=== PATIENT | female | born 1995 | race Caucasian/White ===

== ENCOUNTER 2017-10-11 10:44 | Inpatient (IN) | payer BC ==
[2017-10-11] MEDS ORDERED: Methylergonovine 0.2 MG/1 ML Amp IM PRN (11:09)
[2017-10-11] MEDS ORDERED: Sodium Chloride 0.9% 2.5 ML Syringe FLUSH PRN (11:09)
[2017-10-11] MEDS ORDERED: Lidocaine 1% 50 ML MDV INJECT PRN (11:09)
[2017-10-11] MEDS ORDERED: Butorphanol 1 MG/ML SDV IVPUSH PRN (11:09)
[2017-10-11] MEDS ORDERED: Water For Irrigation,Sterile 1,000 ML Container IRR PRN (11:09)
[2017-10-11] MEDS ORDERED: Terbutaline 1 MG/ML SDV SUBCUT PRN (11:09)
[2017-10-11] MEDS ORDERED: Misoprostol 200 MCG Tab PO PRN (11:09)
[2017-10-11] MEDS ORDERED: Carboprost Tromethamine 250 MCG/1 ML Amp IM PRN (11:09)
[2017-10-11] MEDS ORDERED: Sodium Chloride 0.9% 10 ML Syringe FLUSH PRN (11:09)
[2017-10-11] MEDS ORDERED: Tranexamic Acid 1,000 MG in Sodium Chloride 0.9% 100 ML IV PRN (11:09)
[2017-10-11] MEDS ORDERED: Oxytocin/0.9 % Sodium Chloride 30 UNIT/500 ML BAG IV SCH ×2 (11:15)
[2017-10-11] MEDS: Lactated Ringers 1,000 ML IV SCH ×2 (11:26→14:01)
[2017-10-11] MEDS ORDERED: Ampicillin 2 GM in Sodium Chloride 0.9% 100 ML IV ONE (11:30)
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
[2017-10-11] MEDS ORDERED: Ampicillin 1 GM in Sodium Chloride 0.9% 50 ML IV SCH (15:30)
[2017-10-11] MEDS ORDERED: oxyCODONE 5 MG Tab PO PRN (15:36)
[2017-10-11] MEDS ORDERED: Aluminum Hydroxide/Magnesium Hydroxide/Simethicone Susp 30 ML Cup PO PRN (15:36)
[2017-10-11] MEDS ORDERED: Bisacodyl 10 MG Supp RECTAL PRN (15:36)
[2017-10-11] MEDS ORDERED: Ibuprofen 400 MG Tab PO PRN (15:36)
[2017-10-11] MEDS ORDERED: Lanolin 100% Cream 7 GM Tube TOP PRN (15:36)
[2017-10-11] MEDS ORDERED: Docusate Sodium 100 MG Cap PO PRN (15:36)
[2017-10-11] MEDS ORDERED: Witch Hazel Medicated Pads 40/Jar TOP PRN (15:36)
[2017-10-11] MEDS ORDERED: Acetaminophen 500 MG Tab PO PRN (15:36)
--- NOTE | 2017-10-11 15:43 | PCM.DEL ---
L & D Note - General Info Date of Service: 10/11/17 - Delivery Note Labor: Induced by Oxytocin Delivery Outcome: Livebirth Infant Delivery Method: Spontaneous Vaginal Delivery-Single Anesthesia Type: Epidural Amniotic Fluid Description: Clear Episiotomy Type: None Laceration: 2nd Degree Suture type: Vicryl Suture size: 3-0 Placenta: Intact, Spontaneous Cord: 3 Vessels Provider: Maddy Burris Score 1 min: 8 Score 5 min: 9 Delivery Comments (Free Text/Narrative):: Dictation [id number] - General Info Date of Service: 10/11/17 - Patient Data Weight - Most Recent: 78.925 kg Lab Results Last 24 Hours: Laboratory Results - last 24 hr 10/11/17 10/11/17 Range/Units 11:25 11:25 WBC 8.74 (4.0-11.0) K/uL RBC 4.34 (4.30-5.90) M/uL Hgb 14.3 (12.0-16.0) g/dL Hct 40.9 (36.0-46.0) % MCV 94.2 (80.0-98.0) fL MCH 32.9 H (27.0-32.0) pg MCHC 35.0 (31.0-37.0) g/dL RDW Std Deviation 46.5 (28.0-62.0) fl RDW Coeff of [place] 13 (11.0-15.0) % Plt Count 160 (150-400) K/uL MPV 10.40 (7.40-12.00) fL Nucleated RBC % 0.0 /100WBC Nucleated RBCs # 0 K/uL Blood Type O POSITIVE Antibody Screen NEGATIVE Med Orders - Current: Current Medications Acetaminophen (Tylenol Extra Strength) 500 mg PO Q4H PRN PRN Reason: Pain Acetaminophen (Tylenol Extra Strength) 1,000 mg PO Q4H PRN PRN Reason: Pain Al Hydroxide/Mg Hydroxide (Mag-Al Plus) 30 ml PO Q8H PRN PRN Reason: Heartburn Benzocaine/Menthol (Dermoplast Pain Relief 20%-0.5% [place]) 78 gm TOP ASDIRECTED PRN PRN Reason: Perineal Comfort Measure Bisacodyl (Dulcolax) 10 mg RECTAL .ONCE PRN PRN Reason: Constipation Carboprost Tromethamine (Hemabate Ds) 250 mcg IM ASDIRECTED PRN PRN Reason: Post Hemorrhage Docusate Sodium (Colace) 100 mg PO BID PRN PRN Reason: Constipation Emollient Ointment (Lansinoh Hpa) 0 gm TOP ASDIRECTED PRN PRN Reason: Sore Nipples Lactated Ringer's (Ringers, Lactated) 1,000 mls @ 150 mls/hr IV ASDIRECTED JOSE L Last Admin: 10/11/17 14:01 Dose: 150 mls/hr Oxytocin/Sodium Chloride (Oxytocin 30 Unit/500 Ml-Ns) 30 unit in 500 mls @ 999 mls/hr IV TITRATE JOSE L Oxytocin/Sodium Chloride (Oxytocin 30 Unit/500 Ml-Ns) 30 unit in 500 mls @ 2 mls/hr IV TITRATE JOSE L; Protocol Last Titration: 10/11/17 15:14 Dose: 999 mls/hr Tranexamic Acid 1,000 mg/ (Sodium Chloride) 110 mls @ 660 mls/hr IV ONETIME PRN PRN Reason: Bleeding Ibuprofen (Motrin) 400 mg PO Q4H PRN PRN Reason: Pain Ibuprofen (Motrin) 800 mg PO Q6H PRN PRN Reason: Pain Lidocaine HCl (Xylocaine 1%) 50 ml INJECT .ONCE PRN PRN Reason: Laceration repair Methylergonovine Maleate (Methergine) 0.2 mg IM ASDIRECTED PRN PRN Reason: Post Hemorrhage Misoprostol (Cytotec) 200 mcg PO .ONCE PRN PRN Reason: Post Hemorrhage Oxycodone HCl (Oxycodone) 5 mg PO Q2H PRN PRN Reason: Pain Sodium Chloride (Saline Flush) 10 ml FLUSH ASDIRECTED PRN PRN Reason: Keep Vein Open Sodium Chloride (Saline Flush) 2.5 ml FLUSH ASDIRECTED PRN PRN Reason: Keep Vein Open Witch Funmi (Tucks) 1 pad TOP ASDIRECTED PRN PRN Reason: comfort care Discontinued Medications Butorphanol Tartrate (Stadol) 1 mg IVPUSH Q1H PRN PRN Reason: Pain Ampicillin Sodium 2 gm/ Sodium (Chloride) 100 mls @ 200 mls/hr IV ONETIME ONE Stop: 10/11/17 11:59 Last Admin: 10/11/17 11:44 Dose: 200 mls/hr Ampicillin Sodium 1 gm/ Sodium (Chloride) 50 mls @ 100 mls/hr IV Q4H JOSE L Fentanyl/Bupivacaine HCl (Iqbcddto-Udfbp-Sl 2 Mcg/Ml-0.125%) Confirm Administered Dose 100 mls @ as directed EP .STK-MED ONE Stop: 10/11/17 14:03 Sterile Water (Sterile Water For Irrigation) 1,000 ml IRR ASDIRECTED PRN PRN Reason: delivery Last Admin: 10/11/17 15:22 Dose: 1,000 ml Terbutaline Sulfate (Brethine) 0.25 mg SUBCUT ASDIRECTED PRN PRN Reason: Tacysystole - Problem List Review Problem List Initiated/Reviewed/Updated: Yes - My Orders Last 24 Hours: My Active Orders 10/11/17 11:09 Patient Status [ADT] Routine Bedrest Bathroom Privileges [RC] ASDIRECTED Heart Tones [RC] CONTINUOUS Non Stress Test [RC] PER UNIT ROUTINE May Shower [RC] ASDIRECTED Oxygen Therapy [RC] ASDIRECTED Up ad Madelyn [RC] ASDIRECTED Vaginal Exam [RC] PRN Vaginal Exam [RC] PRN Vital Signs [RC] PER UNIT ROUTINE Vital Signs [RC] PER UNIT ROUTINE Carboprost Tromethamine [Hemabate DS] 250 mcg IM ASDIRECTED PRN Lidocaine 1% [Xylocaine 1%] 50 ml INJECT .ONCE PRN Methylergonovine [Methergine] 0.2 mg IM ASDIRECTED PRN Misoprostol [Cytotec] 200 mcg PO .ONCE PRN Sodium Chloride 0.9% [Saline Flush] 10 ml FLUSH ASDIRECTED PRN Sodium Chloride 0.9% [Saline Flush] 2.5 ml FLUSH ASDIRECTED PRN Tranexamic Acid [Cyklokapron] 1,000 mg Sodium Chloride 0.9% [Normal Saline] 100 ml IV ONETIME Peripheral IV Insertion Adult [OM.PC] Routine Resuscitation Status Routine 10/11/17 11:15 Lactated Ringers [Ringers, Lactated] 1,000 ml IV ASDIRECTED Oxytocin/0.9 % Sodium Chloride [Oxytocin 30 Unit/500 ML-NS] 30 unit in 500 ml IV TITRATE Oxytocin/0.9 % Sodium Chloride [Oxytocin 30 Unit/500 ML-NS] 30 unit in 500 ml IV TITRATE Medication Administration Instruction [OM.PC] Q3H 10/11/17 15:36 Patient Status [ADT] Routine May Shower [RC] ASDIRECTED Up ad Madelyn [RC] ASDIRECTED Vital Signs [RC] PER UNIT ROUTINE Acetaminophen [Tylenol Extra Strength] 1,000 mg PO Q4H PRN Acetaminophen [Tylenol Extra Strength] 500 mg PO Q4H PRN Alum Hydrox/Mag Hydrox/Simeth [Mag-Al Plus] 30 ml PO Q8H PRN Benzocaine/Menthol [Dermoplast Pain Relief 20%-0.5% [place]] 78 gm TOP ASDIRECTED PRN Bisacodyl [Dulcolax] 10 mg RECTAL .ONCE PRN Docusate Sodium [Colace] 100 mg PO BID PRN Ibuprofen [Motrin] 400 mg PO Q4H PRN Ibuprofen [Motrin] 800 mg PO Q6H PRN Lanolin [Lansinoh HPA] See Dose Instructions TOP ASDIRECTED PRN Witch Funmi [Tucks] 1 pad TOP ASDIRECTED PRN oxyCODONE 5 mg PO Q2H PRN Assess Lochia [WOMSER] Per Unit Routine Assess Uterine Involution [WOMSER] Per Unit Routine Breast Pump [WOMSER] Per Unit Routine Ice Therapy [OM.PC] Per Unit Routine Perineal Care [OM.PC] Per Unit Routine Peripheral IV Discontinue [OM.PC] Routine Sitz Bath [OM.PC] Per Unit Routine 10/11/17 Dinner Regular Diet [DIET] 10/12/17 05:11 HEMOGLOBIN/HEMATOCRIT,HH [HEME] Timed
[2017-10-11] MEDS: Benzocaine/Menthol 20%-0.5% Spray 78 GM Cannister TOP PRN (16:06)
[2017-10-11] MEDS: Ibuprofen 800 MG Tab PO PRN ×2 (16:07→22:04)
--- NOTE | 2017-10-11 16:23 | OR ---
SURGEON: Maddy Burris M.D. DATE OF PROCEDURE: 10/11/2017 PREOPERATIVE DIAGNOSES: 1. 39 and 5 week intrauterine . 2. Elective induction of labor. POSTOPERATIVE DIAGNOSES: 1. 39 and 5 week intrauterine . 2. Elective induction of labor. PROCEDURES: Spontaneous vaginal delivery, second-degree midline laceration repaired. ANESTHESIA: Epidural. ESTIMATED BLOOD LOSS: 350 mL. COMPLICATIONS: None. FINDINGS: Viable male, score 8 at 1 minute, 9 at 5 minutes. Weight of 3210 g. Spontaneous delivery, intact placenta, 3-vessel cord. Clear amniotic fluid. DISPOSITION: The patient to [facility] and infant to nursery. PROCEDURE IN DETAIL: Flores is a 22-year-old, G2, P1, at 39 and 5 weeks' gestational age who presents this morning for scheduled induction of labor. On initial admission and presentation, heart tones were found to be 130s with variability category 1. She was found to be 3 cm, 70%, -3 station. She was admitted and routine labs were drawn. She was group beta strep positive, so ampicillin prophylaxis was initiated. The patient responded nicely to Pitocin, became increasingly uncomfortable and underwent regional anesthesia at approximately 2:00 p.m. After undergoing the epidural satisfactorily, she was feeling quite a lot of pressure and shortly after 3:00 was found to be complete, 100% effaced, +2 station. I was called for delivery. Upon my arrival just before this, the patient had spontaneous rupture of membranes. Clear fluid was noted. The patient was placed in modified dorsal lithotomy position, prepped and draped in the usual aseptic manner. With the next 2 contractions, was able to push, deliver 's head atraumatically, spontaneously, followed by anterior shoulder, posterior shoulder, and remaining body without difficulty. The infant's oropharynx and nares bulb suctioned, cord clamped x2 and cut. was handed off to his mother, attending nursing staff at her side. Cord arterial, cord venous, cord blood sampling obtained. Light pressure was applied while the placenta was delivered spontaneously intact. Vigorous fundal uterine massage was then applied while 30 units Pitocin was delivered in 500 mL. IV fluid. Upon inspection of cervix, vaginal sidewalls, and perineum, there was found to be a second-degree midline laceration. This repaired using 3-0 Vicryl in the usual fashion. Hemostasis appeared evident at that time. The patient has tolerated the procedure well overall. Sponge count, instrument count correct. The patient remained in LDRP and infant in nursery. LATRICE / BECKY /[id number]
--- NOTE | 2017-10-11 18:51 | PCM48HPAN ---
Post Anesthesia Note - EVALUATION WITHIN 48HRS OF ANESTHETIC Vital Signs in Normal Range: Yes Patient Participated in Evaluation: Yes Respiratory Function Stable: Yes Airway Patent: Yes Cardiovascular Function Stable: Yes Hydration Status Stable: Yes Pain Control Satisfactory: Yes Nausea and Vomiting Control Satisfactory: Yes Mental Status Recovered: Yes - COMMENTS/OBSERVATIONS Free Text/Narrative:: States back just hurts a little and is wondering when epidural catheter will be removed. I removed the catheter intact and informed RN.
[2017-10-12] MEDS: Acetaminophen 500 MG Tab PO PRN ×3 (00:17→14:07)
[2017-10-12] MEDS: Ibuprofen 800 MG Tab PO PRN ×2 (04:57→11:16)
[2017-10-12 08:33] VITALS: BP 137/72
--- NOTE | 2017-10-12 11:04 | PCM.PNPP ---
- General Info Date of Service: 10/12/17 Functional Status: Reports: Pain Controlled, Tolerating Diet, Ambulating, Urinating, Other (using ibuprofen for cramping and back pain from epidural) - Review of Systems General: Reports: No Symptoms HEENT: Reports: No Symptoms Pulmonary: Reports: No Symptoms Cardiovascular: Reports: No Symptoms Gastrointestinal: Reports: No Symptoms Genitourinary: Reports: No Symptoms Musculoskeletal: Reports: No Symptoms Skin: Reports: No Symptoms Neurological: Reports: No Symptoms Psychiatric: Reports: No Symptoms - General Info Date of Service: 10/12/17 - Patient Data Vital Signs - Most Recent: Last Vital Signs Temp 36.6 C 10/12/17 07:40 Pulse 53 L 10/12/17 07:40 Resp 16 10/12/17 07:40 BP 137/72 10/12/17 07:40 Pulse Ox 97 10/12/17 07:40 Weight - Most Recent: 78.925 kg Lab Results - Last 24 Hours: Laboratory Results - last 24 hr 10/11/17 10/11/17 10/12/17 Range/Units 11:25 11:25 05:51 WBC 8.74 (4.0-11.0) K/uL RBC 4.34 (4.30-5.90) M/uL Hgb 14.3 12.4 (12.0-16.0) g/dL Hct 40.9 36.2 (36.0-46.0) % MCV 94.2 (80.0-98.0) fL MCH 32.9 H (27.0-32.0) pg MCHC 35.0 (31.0-37.0) g/dL RDW Std Deviation 46.5 (28.0-62.0) fl RDW Coeff of [place] 13 (11.0-15.0) % Plt Count 160 (150-400) K/uL MPV 10.40 (7.40-12.00) fL Nucleated RBC % 0.0 /100WBC Nucleated RBCs # 0 K/uL Blood Type O POSITIVE Antibody Screen NEGATIVE Med Orders - Current: Current Medications Acetaminophen (Tylenol Extra Strength) 500 mg PO Q4H PRN PRN Reason: Pain Last Admin: 10/11/17 19:25 Dose: 500 mg Acetaminophen (Tylenol Extra Strength) 1,000 mg PO Q4H PRN PRN Reason: Pain Last Admin: 10/12/17 07:53 Dose: 1,000 mg Al Hydroxide/Mg Hydroxide (Mag-Al Plus) 30 ml PO Q8H PRN PRN Reason: Heartburn Benzocaine/Menthol (Dermoplast Pain Relief 20%-0.5% [place]) 78 gm TOP ASDIRECTED PRN PRN Reason: Perineal Comfort Measure Last Admin: 10/11/17 16:06 Dose: 1 can Bisacodyl (Dulcolax) 10 mg RECTAL .ONCE PRN PRN Reason: Constipation Carboprost Tromethamine (Hemabate Ds) 250 mcg IM ASDIRECTED PRN PRN Reason: Post Hemorrhage Docusate Sodium (Colace) 100 mg PO BID PRN PRN Reason: Constipation Emollient Ointment (Lansinoh Hpa) 0 gm TOP ASDIRECTED PRN PRN Reason: Sore Nipples Last Admin: 10/11/17 16:07 Dose: 1 tube Lactated Ringer's (Ringers, Lactated) 1,000 mls @ 150 mls/hr IV ASDIRECTED JOSE L Last Admin: 10/11/17 14:01 Dose: 150 mls/hr Oxytocin/Sodium Chloride (Oxytocin 30 Unit/500 Ml-Ns) 30 unit in 500 mls @ 999 mls/hr IV TITRATE JOSE L Oxytocin/Sodium Chloride (Oxytocin 30 Unit/500 Ml-Ns) 30 unit in 500 mls @ 2 mls/hr IV TITRATE JOSE L; Protocol Last Titration: 10/11/17 15:14 Dose: 999 mls/hr Tranexamic Acid 1,000 mg/ (Sodium Chloride) 110 mls @ 660 mls/hr IV ONETIME PRN PRN Reason: Bleeding Ibuprofen (Motrin) 400 mg PO Q4H PRN PRN Reason: Pain Ibuprofen (Motrin) 800 mg PO Q6H PRN PRN Reason: Pain Last Admin: 10/12/17 04:57 Dose: 800 mg Lidocaine HCl (Xylocaine 1%) 50 ml INJECT .ONCE PRN PRN Reason: Laceration repair Last Admin: 10/11/17 16:07 Dose: 50 ml Methylergonovine Maleate (Methergine) 0.2 mg IM ASDIRECTED PRN PRN Reason: Post Hemorrhage Misoprostol (Cytotec) 200 mcg PO .ONCE PRN PRN Reason: Post Hemorrhage Oxycodone HCl (Oxycodone) 5 mg PO Q2H PRN PRN Reason: Pain Sodium Chloride (Saline Flush) 10 ml FLUSH ASDIRECTED PRN PRN Reason: Keep Vein Open Sodium Chloride (Saline Flush) 2.5 ml FLUSH ASDIRECTED PRN PRN Reason: Keep Vein Open Witch Funmi (Tucks) 1 pad TOP ASDIRECTED PRN PRN Reason: comfort care Discontinued Medications Butorphanol Tartrate (Stadol) 1 mg IVPUSH Q1H PRN PRN Reason: Pain Ampicillin Sodium 2 gm/ Sodium (Chloride) 100 mls @ 200 mls/hr IV ONETIME ONE Stop: 10/11/17 11:59 Last Admin: 10/11/17 11:44 Dose: 200 mls/hr Ampicillin Sodium 1 gm/ Sodium (Chloride) 50 mls @ 100 mls/hr IV Q4H JOSE L Last Admin: 10/11/17 17:45 Dose: Not Given Fentanyl/Bupivacaine HCl (Dxjxjvhu-Jekic-Dv 2 Mcg/Ml-0.125%) Confirm Administered Dose 100 mls @ as directed EP .STK-MED ONE Stop: 10/11/17 14:03 Last Admin: 10/11/17 16:18 Dose: Not Given Sterile Water (Sterile Water For Irrigation) 1,000 ml IRR ASDIRECTED PRN PRN Reason: delivery Last Admin: 10/11/17 15:22 Dose: 1,000 ml Terbutaline Sulfate (Brethine) 0.25 mg SUBCUT ASDIRECTED PRN PRN Reason: Tacysystole - Interaction Infant Disposition, : [place] in Room with Family Infant Interaction: Holding Infant Feeding: Breastfed Infant; Nursed Well Support Person: - Recovery Exam Fundal Tone: Firm Fundal Level: 1 Fingerbreadths Below Umbilicus Fundal Placement: Midline Lochia Amount: Small Lochia Color: Rubra/Red Perineum Description: Other (see below) Other Perinuem Description: 2nd degree MLL Episiotomy/Laceration: Approximated Bladder Status: Voiding - Exam General: Alert, Oriented HEENT: Pupils Equal Neck: Supple Lungs: Normal Respiratory Effort GI/Abdominal Exam: Soft, Non-Tender, No Distention Extremities: Normal Inspection, Non-Tender, No Pedal Edema Skin: Warm, Dry, Intact Neurological: No New Focal Deficit Psy/Mental Status: Alert, Normal Affect, Normal Mood - Problem List & Annotations (1) Vaginal delivery SNOMED Code(s): 981538170 Code(s): O80 - ENCOUNTER FOR FULL-TERM UNCOMPLICATED DELIVERY Status: Acute Current Visit: No - Problem List Review Problem List Initiated/Reviewed/Updated: Yes - Assessment Assessment:: PPD#1 after , stable, minimal lochia, would like to go home when 24 hours . well - Plan Plan:: Dismiss to home this evening , discharge instructions reviewed.
[2017-10-12] MEDS: Benzocaine/Menthol 20%-0.5% Spray 78 GM Cannister TOP PRN (14:07)
== END 2017-10-12 18:05 | disposition home or self-care (01) | DRG 560 ==
LOC: MW.OBCHECK 10:44 → MW.OB 11:12 → OBSVTOIN 15:13
PROVIDERS: ADMIT Obstetrics & Gynecology; ATTEND Obstetrics & Gynecology
PROC: 10E0XZZ Delivery of Products of Conception, External Approach (ICD-10-PCS; principal; 2017-10-11)
PROC: 3E033VJ Introduction of Other Hormone into Peripheral Vein, Percutaneous Approach (ICD-10-PCS; 2017-10-11)
PROC: 0KQM0ZZ Repair Perineum Muscle, Open Approach (ICD-10-PCS; 2017-10-11)
DX: O70.1 Second degree perineal laceration during delivery (principal); O99.824 Streptococcus B carrier state complicating childbirth; Z3A.39 39 weeks gestation of pregnancy; Z37.0 Single live birth
CPT/HCPCS: 36415; 59025; 59409; 85014; 85018; 85027; 86850; 86900; 86901; A9270-GY; J0290; J2590; J7030; J7120

== ENCOUNTER 2018-05-17 10:09 | Emergency (ER) | payer BC ==
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
[2018-05-17 10:42] VITALS: BP 116/95
== END 2018-05-17 10:39 | disposition home or self-care (01) ==
LOC: MW.ED 10:09
DX: H10.9 Unspecified conjunctivitis (principal); B96.89 Other specified bacterial agents as the cause of diseases classified elsewhere; Z79.899 Other long term (current) drug therapy
CPT/HCPCS: 99282

== ENCOUNTER 2021-03-15 08:46 | Emergency (ER) | payer BC, OTHER ==
[2021-03-15] MEDS ORDERED: Sodium Chloride 0.9% 1,000 ML IV ONE (09:05)
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
[2021-03-15 09:35] LABS: BLOOD UREA NITROGEN,BUN 13 mg/dL (7.0-18.0); CARBON DIOXIDE,CO2 27.4 mmol/L (21.0-32.0); CHLORIDE,CL 101 mmol/L (98-107); GLUCOSE RANDOM 98 mg/dL (74-106); LIPASE 64 U/L (73-393); POTASSIUM,K 3.7 mmol/L (3.5-5.1); SODIUM,NA 140 mmol/L (136-145)
[2021-03-15] MEDS ORDERED: Iopamidol 755 MG/ML 500 ML Multipack Bottle IVPUSH STA (10:41)
--- NOTE | 2021-03-15 11:34 | CT ---
INDICATION: Abdominal pain for 1 week. Lower abdomen including left lower quadrant. No fever or white count. COMPARISON: None TECHNIQUE: CT examination of the abdomen and pelvis was performed following the uneventful intravenous administration of 100 cc of Omnipaque 350. Thin section axial images were obtained from the lung bases through the pubic symphysis. Oral contrast was not administered. Please note that all CT scans at this facility use dose modulation, iterative reconstruction, and/or weight-based dosing when appropriate to reduce radiation dose to as low as reasonably achievable. FINDINGS: LUNG BASES: The lung bases as visualized appear normal.The heart size is normal at the lung bases. LIVER/BILIARY SYSTEM:The liver is normal in size and configuration. There is no focal mass and there is no intra- or extra hepatic biliary ductal dilatation.The gall bladder appears normal. ADRENALS: Normal KIDNEYS, URETERS and BLADDER:The kidneys appear normal. No visible mass, calculus or hydronephrosis. The ureters and bladder as visualized appear normal. SPLEEN:Normal appearance. PANCREAS: Appears normal. RETROPERITONEUM and MESENTERY: There is no mass, adenopathy or aortic aneurysm. GASTROINTESTINAL SYSTEM: Mild fecal retention without mechanical obstruction. The appendix is minimally prominent especially the appendix at the base. The distal appendix is seen on coronal images 42 through 48 and appears normal. The base is minimally prominent as seen on coronal images 38, 39 and 40 measuring about 7 millimeters. Greater than 6 millimeters is usually considered abnormal. This is a borderline/equivocal finding regarding possible appendicitis. There are minimal surrounding fat planes but no clearly visible inflammatory process adjacent to the appendix PELVIS: No mass, adenopathy or free fluid. OSSEOUS STRUCTURES and ABDOMINAL WALL: There is an age-appropriate appearance of the osseous structures.No significant abdominal wall defect. OTHER: No free fluid or free air. IMPRESSION: 1. Borderline prominence of the appendix. In the absence of strong clinical signs and symptoms of appendicitis, this is probably within normal variation. Correlate clinically. 2. Mild diffuse fecal retention without mechanical obstruction. 3. I discussed this case with Dr. Braun at 11:30 a.m. on March 15, [address] note that all [address] scans at this facility use dose modulation, iterative reconstruction, and/or weight-based dosing when appropriate to reduce radiation dose to as low as reasonably achievable. Dictated by Coleen Paz MD @ 03/15/2021 11:32:42 AM (Electronically Signed)
[2021-03-15] MEDS ORDERED: cefTRIAXone 1 GM in Premix Bag 1 BAG IV ONE (11:56)
[2021-03-15] MEDS ORDERED: Ketorolac 30 MG/ML SDV IVPUSH ONE (12:00)
[2021-03-15 13:54] VITALS: BP 128/76; PULSE 78
== END 2021-03-15 13:40 | disposition home or self-care (01) ==
LOC: MW.ED 08:46
DX: N39.0 Urinary tract infection, site not specified (principal)
CPT/HCPCS: 36415; 74177; 80053; 81001; 82550; 83605; 83690; 83735; 84703; 85025; 85610; 85730; 96365; 96375; 99284; J0696; J1885; J7030; Q9967

== ENCOUNTER 2021-10-21 05:22 | Emergency (ER) | payer SELFPAY ==
[2021-10-21] MEDS ORDERED: Sodium Chloride 0.9% 1,000 ML IV ONE (07:44)
[2021-10-21] MEDS ORDERED: Ondansetron 4 MG/2 ML SDV IVPUSH ONE (07:44)
[2021-10-21 08:47] VITALS: BP 112/67; PULSE 85
== END 2021-10-21 08:47 | disposition home or self-care (01) ==
LOC: MW.ED 05:22
DX: O23.41 Unspecified infection of urinary tract in pregnancy, first trimester (principal); N39.0 Urinary tract infection, site not specified; Z3A.01 Less than 8 weeks gestation of pregnancy
CPT/HCPCS: 81001; 96361; 96374; 99284; J2405; J7030

== ENCOUNTER 2021-10-22 11:51 | Emergency (ER) | payer SELFPAY ==
[2021-10-22] MEDS ORDERED: Sodium Chloride 0.9% 1,000 ML IV ONE (11:54)
[2021-10-22 12:36] LABS: CARBON DIOXIDE,CO2 24.7 mmol/L (21.0-32.0); POTASSIUM,K 3.8 mmol/L (3.5-5.1)
[2021-10-22 12:56] LABS: CORONAVIRUS COVID-19 NAA NEGATIVE (NEGATIVE); INFLUENZA A NAA NEGATIVE (NEGATIVE); INFLUENZA B NAA NEGATIVE (NEGATIVE)
[2021-10-22 14:01] VITALS: BP 124/87; PULSE 109
[2021-10-22 14:49] LABS: C. TRACHOMATIS BY PCR NOT DETECTED; N. GONORRHOEAE BY PCR NOT DETECTED
== END 2021-10-22 14:01 | disposition home or self-care (01) ==
LOC: MW.ED 11:51
DX: O98.311 Other infections with a predominantly sexual mode of transmission complicating pregnancy, first trimester (principal); A60.00 Herpesviral infection of urogenital system, unspecified; Z3A.01 Less than 8 weeks gestation of pregnancy; Z20.822 Contact with and (suspected) exposure to COVID-19
CPT/HCPCS: 0240U; 36415; 80053; 83690; 84703; 85025; 86308; 86695; 86696; 87480; 87491; 87510; 87529; 87591; 87660; 99283; J7030

== ENCOUNTER 2022-06-19 05:12 | Inpatient (IN) | payer MEDICAID ==
[2022-06-19] MEDS ORDERED: Methylergonovine 0.2 MG/1 ML Amp IM PRN ×2 (05:28→10:50)
[2022-06-19] MEDS ORDERED: Carboprost Tromethamine 250 MCG/1 ML Amp IM PRN (05:28)
[2022-06-19] MEDS ORDERED: Sodium Chloride 0.9% 20 ML SDV IV PRN (05:28)
[2022-06-19] MEDS ORDERED: Lidocaine 1% 50 ML MDV INJECT PRN (05:28)
[2022-06-19] MEDS ORDERED: Sodium Chloride 0.9% 2.5 ML Syringe FLUSH PRN (05:28)
[2022-06-19] MEDS ORDERED: Butorphanol 1 MG/ML SDV IVPUSH PRN (05:28)
[2022-06-19] MEDS ORDERED: Water For Irrigation,Sterile 1,000 ML Container IRR PRN (05:28)
[2022-06-19] MEDS ORDERED: Terbutaline 1 MG/ML SDV SUBCUT PRN (05:28)
[2022-06-19] MEDS ORDERED: Tranexamic Acid 1,000 MG in Sodium Chloride 0.9% 100 ML IV PRN ×2 (05:28→10:50)
[2022-06-19] MEDS ORDERED: Sodium Chloride 0.9% 10 ML Syringe FLUSH PRN (05:28)
[2022-06-19] MEDS ORDERED: Misoprostol 200 MCG Tab PO PRN (05:28)
[2022-06-19] MEDS ORDERED: Lactated Ringers 1,000 ML IV SCH (05:30)
[2022-06-19] MEDS ORDERED: Oxytocin/0.9 % Sodium Chloride 30 UNIT/500 ML BAG IV SCH ×2 (05:30)
[2022-06-19] MEDS ORDERED: ePHEDrine 50 MG/ML SDV IVPUSH PRN ×2 (07:59)
[2022-06-19] MEDS ORDERED: Phenylephrine HCl In 0.9% NaCl 1 MG/10 ML Vial IVPUSH PRN (07:59)
[2022-06-19] MEDS ORDERED: Phenylephrine HCl In 0.9% NaCl 1 MG/10 ML Vial IVPUSH SCH (08:00)
[2022-06-19] MEDS ORDERED: Ropivacaine HCl/PF 400 MG in Premix Bag 1 BAG EPIDUR SCH (08:00)
[2022-06-19] MEDS ORDERED: Bisacodyl 10 MG Supp RECTAL PRN (10:50)
[2022-06-19] MEDS ORDERED: Benzocaine/Menthol 20%-0.5% Spray 78 GM Cannister TOP PRN (10:50)
[2022-06-19] MEDS ORDERED: Acetaminophen 500 MG Tab PO PRN (10:50)
[2022-06-19] MEDS ORDERED: Witch Hazel Medicated Pads 40/Jar TOP PRN (10:50)
[2022-06-19] MEDS ORDERED: Lanolin 100% Cream 7 GM Tube TOP PRN (10:50)
[2022-06-19] MEDS ORDERED: Docusate Sodium 100 MG Cap PO PRN (10:50)
[2022-06-19] MEDS ORDERED: Ibuprofen 400 MG Tab PO PRN (10:50)
[2022-06-19] MEDS: Ibuprofen 800 MG Tab PO PRN ×2 (11:07→18:33)
[2022-06-19] MEDS: Acetaminophen 500 MG Tab PO PRN ×2 (15:51→21:22)
[2022-06-20] MEDS: Acetaminophen 500 MG Tab PO PRN ×2 (06:07→12:26)
[2022-06-20 08:17] VITALS: BP 116/78; PULSE 79
[2022-06-20] MEDS: Ibuprofen 800 MG Tab PO PRN (08:28)
[2022-06-20] MEDS ORDERED: Sertraline 50 MG Tab PO SCH (09:00)
[2022-06-20] MEDS ORDERED: Magnesium Oxide 400 MG Tab PO SCH (09:00)
[2022-06-20] MEDS ORDERED: Prenatal Multivitamin with Calcium/Folic Acid/Iron Tab PO SCH (09:00)
== END 2022-06-20 12:51 | disposition home or self-care (01) | DRG 806 ==
LOC: MW.OBCHECK 05:12 → MW.OB 05:13 → MW.OBCHECK 05:29 → MW.OB 05:29 → OBSVTOIN 10:18 → MW.OB 12:55
PROVIDERS: ADMIT Obstetrics & Gynecology; ATTEND Obstetrics & Gynecology
PROC: 10E0XZZ Delivery of Products of Conception, External Approach (ICD-10-PCS; principal; 2022-06-19)
PROC: 0KQM0ZZ Repair Perineum Muscle, Open Approach (ICD-10-PCS; 2022-06-19)
PROC: 3E033VJ Introduction of Other Hormone into Peripheral Vein, Percutaneous Approach (ICD-10-PCS; 2022-06-19)
DX: O99.344 Other mental disorders complicating childbirth (principal); O98.32 Other infections with a predominantly sexual mode of transmission complicating childbirth; Z37.0 Single live birth; A60.09 Herpesviral infection of other urogenital tract; O69.81X0 Labor and delivery complicated by cord around neck, without compression, not applicable or unspecified; O70.1 Second degree perineal laceration during delivery; F41.9 Anxiety disorder, unspecified; F32.A Depression, unspecified; Z3A.39 39 weeks gestation of pregnancy; Z98.890 Other specified postprocedural states
CPT/HCPCS: 36415; 59025; 59409; 82803; 85014; 85018; 85027; 86592; 86850; 86900; 86901; A9270-GY; J0595; J2001; J2590; J3490; J7120; U0002